=== PATIENT | female | born 1985 | race Caucasian/White ===

== ENCOUNTER 2024-07-11 11:08 | Emergency (ER) | payer MEDICAID ==
[~2024-07-11] VITALS: Ht 157.5 cm; Wt 95.0 kg
[~2024-07-11 11:08] MED LIST: PREN1CAP13 PO
[2024-07-11 11:16] VITALS: O2SAT 100
[2024-07-11] MEDS ORDERED: CETI10CA2 MT (12:03)
[2024-07-11] MEDS ORDERED: HYDR45CR12 TP (12:03)
[2024-07-11 12:11] VITALS: BP 142/85; PULSE 69; RESP 18; TEMP 36.8; O2SAT 100
[2024-07-12] MEDS ORDERED: PRED5DRO22 BOTHEYE (20:33)
[2024-07-12] MEDS ORDERED: INDO50CA98 MT (20:33)
== END 2024-07-11 12:12 | disposition home or self-care (01) ==
LOC: ER 11:08
DX: T78.49XA Other allergy, initial encounter (principal); R19.7 Diarrhea, unspecified; L30.9 Dermatitis, unspecified; X58.XXXA Exposure to other specified factors, initial encounter
CPT/HCPCS: 81025; 99282

== ENCOUNTER 2024-07-12 15:06 | Emergency (ER) | payer MEDICAID ==
[~2024-07-12] VITALS: Ht 154.9 cm; Wt 84.5 kg
[~2024-07-12 15:06] MED LIST changes: +CETI10CA2 MT; +HYDR45CR12 TP
[2024-07-12 15:17] VITALS: O2SAT 100
[2024-07-12] MEDS ORDERED: DEXAMETHASONE 4MG TABLET PO ONE (17:45)
[2024-07-12] MEDS: KETOROLAC 30MG/ML VIAL IM ONE (18:03)
[2024-07-12] MEDS: DEXAMETHASONE 4MG TABLET PO NR (18:08)
[2024-07-12] MEDS: TETRACAINE 0.5% OPHTH DROPS 4ML RIGHTEYE ONE (18:08)
[2024-07-12] MEDS ORDERED: PRED5DRO22 BOTHEYE (20:33)
[2024-07-12] MEDS ORDERED: INDO50CA98 MT (20:33)
[2024-07-12 20:50] VITALS: BP 130/76; PULSE 70; RESP 16; TEMP 36.6; O2SAT 98
== END 2024-07-12 21:22 | disposition admitted as inpatient to this hospital (09) ==
LOC: ER 15:11
DX: H15.001 Unspecified scleritis, right eye (principal); Z79.899 Other long term (current) drug therapy
CPT/HCPCS: 99283; 96372; J1885; J8540